=== PATIENT | male | born 1965 ===

== ENCOUNTER 2017-07-15 22:05 | Emergency (ER) | payer SELFPAY ==
[2017-07-15 22:57] VITALS: BMI 24.1
[2017-07-15 22:58] VITALS: BP 133/83; PULSE 72; RESP 16; TEMP 97.7; O2SAT 98
[2017-07-16] MEDS ORDERED: Tdap Vaccine 0.5 ml Vial (10-64 yrs) IM ONE ×2 (00:22→00:27)
--- NOTE | 2017-07-16 00:24 | ED PDOC ---
Upper Extremity Pain/Injury Time Seen by Provider: 07/15/17 23:25 Chief Complaint (Nursing): Abnormal Skin Integrity Chief Complaint (Provider): Abnormal Skin Integrity History Per: Patient History/Exam Limitations: no limitations Onset/Duration Of Symptoms: Other (prior to arrival) Current Symptoms Are (Timing): Still Present Additional Complaint(s): 52 y/o male with no significant pmhx, who presents to ED for evaluation of right hand laceration prior to arrival. Patient states while washing dishes he broke a glass and sustained a laceration to the web site between his 4th and 5th right digits. Denies numbness or decreased ROM. Tetanus not UTD. Past Medical History Reviewed: Historical Data, Nursing Documentation, Vital Signs Vital Signs: Last Vital Signs Temp 97.7 F 07/15/17 22:57 Pulse 72 07/15/17 22:57 Resp 16 07/15/17 22:57 BP 133/83 07/15/17 22:57 Pulse Ox 98 07/15/17 22:57 - Medical History PMH: Depression, HTN, Hypercholesterolemia Denies: Diabetes, Hepatitis, HIV, Chronic Kidney Disease, Seizures, Sexually Transmitted Disease - Surgical History Surgical History: No Surg Hx - Family History Family History: States: Unknown Family Hx - Immunization History Hx Tetanus Toxoid Vaccination: No - Home Medications Home Medications: Ambulatory Orders Medication Instructions Recorded Atorvastatin [Lipitor] 20 mg PO DAILY #30 tab 11/22/15 buPROPion SR [Wellbutrin SR 150 MG] 150 mg PO DAILY #30 tab 11/22/15 hydroCHLOROthiazide [Microzide] 12.5 mg PO DAILY #30 cap 11/22/15 - Allergies Allergies/Adverse Reactions: Allergies Allergy/AdvReac Type Severity Reaction Status Date / Time No Known Allergies Allergy Verified 07/15/17 23:00 Review of Systems ROS Statement: Except As Marked, All Systems Reviewed And Found Negative Skin: Positive for: Lesions (2 cm laceration to web space between 4th and 5th right digit) Neurological: Negative for: Numbness Physical Exam - Reviewed Nursing Documentation Reviewed: Yes Vital Signs Reviewed: Yes - Physical Exam Comments: GENERAL APPEARANCE: Patient is awake, alert, oriented x 3, in no acute distress. SKIN: Warm, dry; (-) cyanosis. RIGHT HAND: (+) 2cm laceration to web site between 4th and 5th right digits, (- ) deformity. (-) distal neurovascular deficits. Capillary refill <2 seconds. NEURO AND PSYCH: Mental status as above. - ECG O2 Sat by Pulse Oximetry: 98 (RA) Pulse Ox Interpretation: Normal Medical Decision Making Medical Decision Making: Plan: Wound irrigated with saline. Laceration to the R hand in the webspace of 4th & 5th digit, measuring ~2 cm, closed with Dermabond by PA, and clean dressing applied. Patient tolerated procedure well. Advised to follow up with primary care physician in 1-2 days without fail. Return to the emergency room at any time for any new or worsening symptoms. Patient states he fully agrees with and understands discharge instructions. States that he agrees with the plan and disposition. Verbalized and repeated discharge instructions and plan. I have given the patient opportunity to ask any additional questions. Scribe Attestation: Documented by Jerod Mittal, acting as a scribe for Roxy Aguilar PA-C. Provider Scribe Attestation: All medical record entries made by the Scribe were at my direction and personally dictated by me. I have reviewed the chart and agree that the record accurately reflects my personal performance of the history, physical exam, medical decision making, and the department course for this patient. I have also personally directed, reviewed, and agree with the discharge instructions and disposition. Disposition - Clinical Impression Clinical Impression: Laceration of right hand - Patient ED Disposition Is Patient to be Admitted: No Counseled Patient/Family Regarding: Diagnosis, Need For Followup - Disposition Disposition: Routine/Home Disposition Time: 00:15 Condition: STABLE Additional Instructions: Thank you for letting us take care of you today. You were treated for right hand laceration. The emergency medical care you received today was directed at your acute symptoms. It may take several days for your symptoms to resolve. Return to the Emergency Department if your symptoms worsen, do not improve, or if you have any other problems. Please contact your doctor in 2 days for re-evaluation and follow up. Bring any paperwork you were given at discharge with you along with any medications you are taking to your follow up visit. Our treatment cannot replace ongoing medical care by a primary care provider (PCP) outside of the emergency department. Thank you for allowing the [facility] team to be part of your care today. 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
== END 2017-07-16 01:24 | disposition home or self-care (01) ==
LOC: H.ER 22:05
DX: Z23 Encounter for immunization (principal); I10 Essential (primary) hypertension; E11.8 Type 2 diabetes mellitus with unspecified complications; Z86.59 Personal history of other mental and behavioral disorders; E78.00 Pure hypercholesterolemia, unspecified; W25.XXXA Contact with sharp glass, initial encounter; Y93.G1 Activity, food preparation and clean up

== ENCOUNTER 2018-07-03 22:46 | Emergency (ER) | payer SELFPAY ==
[2018-07-03 22:46] VITALS: BMI 24.1
[2018-07-03 23:12] VITALS: RESP 18; O2SAT 99
[2018-07-03] MEDS ORDERED: Sodium Chloride 0.9% 1,000 ML IV STA (23:25)
--- NOTE | 2018-07-03 23:31 | ED PDOC ---
HPI: Abdomen Chief Complaint (Provider): abdominal pain History Per: Patient History/Exam Limitations: no limitations Onset/Duration Of Symptoms: Days (3), Gradual, Persistent Current Symptoms Are (Timing): Still Present Severity: Moderate Location Of Pain/Discomfort: LLQ (radiates to groin if pressed really hard) Associated Symptoms: denies: Fever, Chills, Nausea, Vomiting, Diarrhea, Loss Of Appetite, Back Pain, Chest Pain, Constipation, Urinary Symptoms Exacerbating Factors: Movement, Other (palpation) Alleviating Factors: None Additional Complaint(s): PMD [facility] <Elena Stubbs - Last Filed: 07/03/18 23:28> <Russell Barron - Last Filed: 07/04/18 01:56> Time Seen by Provider: 07/03/18 23:16 Chief Complaint (Nursing): Abdominal Pain Past Medical History Reviewed: Historical Data, Nursing Documentation, Vital Signs Vital Signs: Last Vital Signs Temp Pulse 58 L 07/03/18 23:10 Resp 18 07/03/18 23:10 BP 150/96 H 07/03/18 23:10 Pulse Ox 99 07/03/18 23:10 Primary Care Provider: FAMILY PROVIDER,NO - Medical History PMH: Depression, HTN, Hypercholesterolemia Denies: Diabetes, Hepatitis, HIV, Chronic Kidney Disease, Seizures, Sexually Transmitted Disease - Surgical History Surgical History: No Surg Hx - Family History Family History: States: Hypertension, Other Other Family History: High cholesterol - Social History Current smoker - smoking cessation education provided: No (quit 1 year ago) Alcohol: Occasional Drugs: Denies - Immunization History Hx Tetanus Toxoid Vaccination: No <Elena Stubbs - Last Filed: 07/03/18 23:28> Vital Signs: Last Vital Signs Temp 98.6 F 07/04/18 00:01 Pulse 58 L 07/03/18 23:10 Resp 18 07/03/18 23:10 BP 150/96 H 07/03/18 23:10 Pulse Ox 99 07/03/18 23:38 <Russell Barron - Last Filed: 07/04/18 01:56> - Home Medications Home Medications: Ambulatory Orders Medication Instructions Recorded Atorvastatin [Lipitor] 20 mg PO DAILY #30 tab 11/22/15 buPROPion SR [Wellbutrin SR 150 MG] 150 mg PO DAILY #30 tab 11/22/15 hydroCHLOROthiazide [Microzide] 12.5 mg PO DAILY #30 cap 11/22/15 - Allergies Allergies/Adverse Reactions: Allergies Allergy/AdvReac Type Severity Reaction Status Date / Time No Known Allergies Allergy Verified 07/15/17 23:00 Review of Systems ROS Statement: Except As Marked, All Systems Reviewed And Found Negative (and as per HPI) Gastrointestinal: Positive for: Abdominal Pain. Negative for: Nausea, Vomiting, Diarrhea <Elena Stubbs - Last Filed: 07/03/18 23:28> Physical Exam - Reviewed Nursing Documentation Reviewed: Yes Vital Signs Reviewed: Yes - Physical Exam Appears: Positive for: Non-toxic, In Acute Distress Head Exam: Positive for: ATRAUMATIC, NORMOCEPHALIC Skin: Positive for: Warm, Dry Eye Exam: Positive for: EOMI, PERRL ENT: Negative for: Pharyngeal Erythema, Tonsillar Exudate Neck: Positive for: Painless ROM, Supple Cardiovascular/Chest: Positive for: Regular Rate, Rhythm. Negative for: Murmur Respiratory: Positive for: Normal Breath Sounds. Negative for: Respiratory Distress Gastrointestinal/Abdominal: Positive for: Soft, Tenderness (exquisite LLQ tende rness, neg mcburney's point tenderness, neg francois's sign). Negative for: Mass, Distended, Guarding Back: Positive for: Normal Inspection. Negative for: Decreased ROM Extremity: Positive for: Normal ROM. Negative for: Deformity Lymphatic: Negative for: Adenopathy, Inguinal Node Tenderness Neurological/Psych: Positive for: Awake, Alert. Negative for: Motor/Sensory Deficits <Elena Stubbs - Last Filed: 07/03/18 23:28> - ECG O2 Sat by Pulse Oximetry: 99 <Elena Stubbs - Last Filed: 07/03/18 23:28> - Laboratory Results Result Diagrams: 07/03/18 23:50 07/03/18 23:50 Lab Results: Total Bilirubin 0.4 mg/dl (0.2-1.3) 07/03/18 23:50 AST 36 U/L (17-59) 07/03/18 23:50 ALT 54 U/L (21-72) 07/03/18 23:50 Alkaline Phosphatase 90 U/L (38-126) 07/03/18 23:50 Total Protein 7.9 G/DL (6.3-8.2) 07/03/18 23:50 Albumin 4.5 g/dL (3.5-5.0) 07/03/18 23:50 Globulin 3.5 gm/dL (2.2-3.9) 07/03/18 23:50 Albumin/Globulin Ratio 1.3 (1.0-2.1) 07/03/18 23:50 Urine Color Yellow (YELLOW) 07/03/18 23:50 Urine Clarity Clear (Clear) 07/03/18 23:50 Urine pH 6.0 (5.0-8.0) 07/03/18 23:50 Ur Specific [place] 1.019 (1.003-1.030) 07/03/18 23:50 Urine Protein Negative mg/dL (NEGATIVE) 07/03/18 23:50 Urine Glucose (UA) Neg mg/dL (NEGATIVE) 07/03/18 23:50 Urine Ketones Negative mg/dL (NEGATIVE) 07/03/18 23:50 Urine Blood Negative (NEGATIVE) 07/03/18 23:50 Urine Nitrate Negative (NEGATIVE) 07/03/18 23:50 Urine Bilirubin Negative (NEGATIVE) 07/03/18 23:50 Urine Urobilinogen 0.2-1.0 mg/dL (0.2-1.0) 07/03/18 23:50 Ur Leukocyte Esterase Neg Shannon/uL (Negative) 07/03/18 23:50 Urine RBC (Auto) 1 /hpf (0-3) 07/03/18 23:50 Urine Microscopic WBC < 1 /hpf (0-5) 07/03/18 23:50 <Russell Barron - Last Filed: 07/04/18 01:56> Disposition - Disposition Disposition: Transfer of Care Disposition Time: 00:00 Patient Signed Over To: Russell Barron Handoff Comments: Pending ER workup, reassessment and final ER disposition. <Elena Stubbs - Last Filed: 07/03/18 23:28> - Patient ED Disposition Is Patient to be Admitted: No Doctor Will See Patient In The: Office Counseled Patient/Family Regarding: Studies Performed, Diagnosis, Need For Followup <Russell Barron - Last Filed: 07/04/18 01:56> - Clinical Impression Clinical Impression: Abdominal pain, Colitis, Renal cyst - Disposition Referrals: [facility] [Outside] Condition: GOOD Additional Instructions: SILVERIO RIVERA, thank you for letting us take care of you today. Your provider was Russell Barron MD and you were treated for ABD PAIN. The emergency medical care you received today was directed at your acute symptoms. If you were prescribed any medication, please fill it and take as directed. It may take several days for your symptoms to resolve. Return to the Emergency Department if your symptoms worsen, do not improve, or if you have any other problems. Please contact your doctor or call one of the physicians/clinics you have been referred to that are listed on the Patient Visit Information form that is included in your discharge packet. Bring any paperwork you were given at discharge with you along with any medications you are taking to your follow up visit. Our treatment cannot replace ongoing medical care by a primary care provider outside of the emergency department. Thank you for allowing the [facility] team to be part of your care today. If you had an X-Ray or CT scan: A Radiologist will review the ED reading if any change in treatment is needed we will contact you. If you had a blood, urine, or wound culture: It will take several days for the results, if any change in treatment is needed we will contact you. Instructions: Colitis (DC) Forms: [employer] (Spanish)
[2018-07-04 00:20] LABS: BASO % 0.5 % (0.0-2.0); EOS # 0.1 K/uL (0.0-0.7); EOS % 1.7 % (0.0-4.0); HEMOGLOBIN 13.7 g/dL (12.0-18.0); LYMPH # 2.3 K/uL (1.0-4.3); LYMPH % 35.4 % (20.0-40.0); MEAN CELL VOLUME 92.8 fl (80.0-94.0); MEAN CORPUSCULAR HGB CONC 34.5 g/dL (33.0-37.0); MONO # 0.5 K/uL (0.0-0.8); MONO % 6.9 % (0.0-10.0); NEUT # 3.7 K/uL (1.8-7.0); NEUT % 55.5 % (50.0-75.0); NRBC % 0.1 % (0.0-0.0); RBC 4.28 Mil/uL (4.40-5.90); RED CELL DISTRIBUTION WIDTH 13.2 % (11.5-14.5); WHITE BLOOD COUNT 6.6 K/uL (4.8-10.8)
[2018-07-04 00:30] LABS: URINE BILIRUBIN NEGATIVE (NEGATIVE); URINE BLOOD NEGATIVE (NEGATIVE); URINE CLARITY CLEAR (Clear); URINE COLOR YELLOW (YELLOW); URINE GLUCOSE (UA) NEG (NEGATIVE); URINE LEUKOCYTE ESTERASE NEG Leu/uL (Negative); URINE PROTEIN NEGATIVE (NEGATIVE); URINE UROBILINOGEN 0.2-1.0 mg/dL (0.2-1.0)
[2018-07-04 00:31] LABS: ALB/GLOB RATIO 1.3 (1.0-2.1); ALBUMIN 4.5 g/dL (3.5-5.0); ALT/SGPT 54 U/L (21-72); AST/SGOT 36 U/L (17-59); BLOOD UREA NITROGEN 16 mg/dl (9-20); CALCIUM 8.4 mg/dL (8.4-10.2); GFR NON-AFRICAN AMERICAN > 60
[2018-07-04] MEDS ORDERED: Iohexol 300 100 ML IJ ONE (00:51)
[2018-07-04] MEDS ORDERED: Sodium Chloride 0.9% 50 ML IV ONE (00:51)
--- NOTE | 2018-07-04 03:51 | ED PDOC ---
- Laboratory Results Result Diagrams: 07/03/18 23:50 07/03/18 23:50 Lab Results: Total Bilirubin 0.4 mg/dl (0.2-1.3) 07/03/18 23:50 AST 36 U/L (17-59) 07/03/18 23:50 ALT 54 U/L (21-72) 07/03/18 23:50 Alkaline Phosphatase 90 U/L (38-126) 07/03/18 23:50 Total Protein 7.9 G/DL (6.3-8.2) 07/03/18 23:50 Albumin 4.5 g/dL (3.5-5.0) 07/03/18 23:50 Globulin 3.5 gm/dL (2.2-3.9) 07/03/18 23:50 Albumin/Globulin Ratio 1.3 (1.0-2.1) 07/03/18 23:50 Urine Color Yellow (YELLOW) 07/03/18 23:50 Urine Clarity Clear (Clear) 07/03/18 23:50 Urine pH 6.0 (5.0-8.0) 07/03/18 23:50 Ur Specific [place] 1.019 (1.003-1.030) 07/03/18 23:50 Urine Protein Negative mg/dL (NEGATIVE) 07/03/18 23:50 Urine Glucose (UA) Neg mg/dL (NEGATIVE) 07/03/18 23:50 Urine Ketones Negative mg/dL (NEGATIVE) 07/03/18 23:50 Urine Blood Negative (NEGATIVE) 07/03/18 23:50 Urine Nitrate Negative (NEGATIVE) 07/03/18 23:50 Urine Bilirubin Negative (NEGATIVE) 07/03/18 23:50 Urine Urobilinogen 0.2-1.0 mg/dL (0.2-1.0) 07/03/18 23:50 Ur Leukocyte Esterase Neg Shannon/uL (Negative) 07/03/18 23:50 Urine RBC (Auto) 1 /hpf (0-3) 07/03/18 23:50 Urine Microscopic WBC < 1 /hpf (0-5) 07/03/18 23:50 - ECG O2 Sat by Pulse Oximetry: 99 (RA) Pulse Ox Interpretation: Normal Medical Decision Making Medical Decision Making: Time: 0000 Patient endorsed to provider from Elena Stubbs MD. Patient complains of abdominal pain. Pending CT and final disposition. Time:013 FINDINGS: Bilateral basilar subsegmental atelectatic pulmonary changes. 5.1 cm left renal simple cyst. Colonic diverticulosis. Diffuse thickening of the sigmoid colon can be secondary to underdistention, spasm versus mild uncomplicated colitis. Diffuse thickening of the wall of the bladder suggestive of cystitis. Normal unenhanced liver. Normal gallbladder and extrahepatic biliary system. Normal unenhanced spleen. Normal pancreas. Normal bilateral adrenal glands. Normal size of the right kidney. There is no right renal mass. There are no r ight renal calculi. There is no right hydronephrosis. Normal visualized right ureter. Normal size of the left kidney. There is no left renal mass. There are no left renal calculi. There is no left hydronephrosis. Normal visualized left ureter. Normal visualized stomach. Normal small intestine. Normal remaining colon. The appendix is visualized and appears normal. There is no demonstrated peritoneal fluid. Normal abdominal aorta. Normal inferior vena cava. Normal retroperitoneum. Normal urinary bladder. There is no pelvic mass lesion or lymphadenopathy. There is no pelvic fluid. Normal abdominal wall. Normal osseous structures. IMPRESSION: Bilateral basilar subsegmental atelectatic pulmonary changes. 5.1 cm left renal simple cyst. Colonic diverticulosis. Diffuse thickening of the sigmoid colon can be secondary to underdistention, spasm versus mild uncomplicated colitis. Diffuse thickening of the wall of the bladder suggestive of cystitis. Electronically signed on July 04, 2018 1:35:41 AM EDT by: Victorino Mosher M.D., Certified by MARCELINO RAYMUNDO, Neuroradiology Scribe Attestation: Documented by Brooks Hewitt, acting as a scribe for Russell Barron MD. Provider Scribe Attestation: All medical record entries made by the Scribe were at my direction and personally dictated by me. I have reviewed the chart and agree that the record accurately reflects my personal performance of the history, physical exam, medical decision making, and the department course for this patient. I have also personally directed, reviewed, and agree with the discharge instructions and disposition. Disposition - Clinical Impression Clinical Impression: Abdominal pain, Colitis, Renal cyst - POA Present On Arrival: None - Disposition Referrals: [facility] [Outside] Ish Bae MD [Staff Provider] - Disposition: Routine/Home Disposition Time: 02:00 Condition: GOOD Additional Instructions: SILVERIO RIVERA, thank you for letting us take care of you today. Your provider was Russell Barron MD and you were treated for ABD PAIN. The emergency medical care you received today was directed at your acute symptoms. If you were prescribed any medication, please fill it and take as directed. It may take several days for your symptoms to resolve. Return to the Emergency Department if your symptoms worsen, do not improve, or if you have any other problems. Please contact your doctor or call one of the physicians/clinics you have been referred to that are listed on the Patient Visit Information form that is included in your discharge packet. Bring any paperwork you were given at discharge with you along with any medications you are taking to your follow up visit. Our treatment cannot replace ongoing medical care by a primary care provider outside of the emergency department. Thank you for allowing the [facility] team to be part of your care today. If you had an X-Ray or CT scan: A Radiologist will review the ED reading if any change in treatment is needed we will contact you. If you had a blood, urine, or wound culture: It will take several days for the results, if any change in treatment is needed we will contact you. Prescriptions: Ciprofloxacin [Cipro] 500 mg PO BID #14 tab metroNIDAZOLE [Flagyl] 500 mg PO TID #21 tab Instructions: Colitis (DC) Forms: [employer] ([employer])
[2018-07-04 05:32] VITALS: BP 138/75; PULSE 68; TEMP 98.5
--- NOTE | 2018-07-04 11:58 | CT ---
Date of service: 07/04/2018 PROCEDURE: CT abdomen and pelvis . HISTORY: LLQ pain COMPARISON: None. TECHNIQUE: Contiguous axial images of the abdomen and pelvis performed following intravenous injection of a reformats generated. Radiation dose: Total exam DLP = 286.42 mGy-cm. This CT exam was performed using one or more of the following dose reduction techniques: Automated exposure control, adjustment of the mA and/or kV according to patient size, and/or use of iterative reconstruction technique. FINDINGS: LOWER THORAX: Mild passive/dependent type atelectasis both lower lung trimble. Lung bases are otherwise clear. No evidence of effusion basilar pneumothorax Heart size within range of normal. No evidence of significant pericardial effusion. Small hiatal hernia. LIVER: Liver is mildly enlarged measuring nearly 20 cm in CC dimension. Mild to moderate diffuse fatty hepatic infiltration.. There is a tiny approximately 4.8 mm low-attenuation focus seen along the left lateral margin left lobe liver that may represent a small invagination of mesenteric fat however small hepatic cyst not completely excluded. GALLBLADDER AND BILE DUCTS: Gallbladder is contracted with no evidence of intraluminal gallbladder calculi. PANCREAS: Unremarkable. No mass. No ductal dilatation. SPLEEN: Spleen exhibits relatively normal size and attenuation pattern without mass collection or calcification. ADRENALS: No adrenal lesions. KIDNEYS AND URETERS: Kidneys demonstrate relatively symmetric nephrograms. No evidence of nephrolithiasis or hydronephrosis. Suspect small hyperdense cyst along the posterolateral cortex mid to lower pole left kidney. BLADDER: The urinary bladder is incompletely distended which in part accounts for thick-walled appearance. Muscular hypertrophy presumably contributes. Correlation with urinalysis to exclude cystitis versus other intrinsic/invasive wall lesion.. REPRODUCTIVE: Prostate gland measures approximately 4.4 cm in transverse dimension.. APPENDIX: Normal-appearing appendix with no evidence to suggest acute appendicitis. BOWEL: The bowel is limited due to the lack of oral contrast material. The stomach is incompletely distended containing air and liquid with thick-walled appearance. Visualized loops of small bowel exhibit normal contour and caliber. No evidence of acute mechanical small bowel obstruction however several loops of small bowel exhibit slight thick-walled appearance. There is a large amount of stool seen in the ascending and transverse colon consistent with mild fecal retention/constipation. Numerous diverticula are seen along the sigmoid and descending colon. There is a localized area of wall thickening and in the adjacent mesenteric infiltration all at the junction of the distal descending/sigmoid colon consistent with acute diverticulitis. There is also wall thickening of the remaining sigmoid colon likely due to muscular hypertrophy due to chronic diverticular disease however incomplete distension and peristalsis may contribute. PERITONEUM: Unremarkable. No fluid collection. No free air. LYMPH NODES: Unremarkable. No enlarged lymph nodes. VASCULATURE: Unremarkable. No aortic aneurysm. No aortic atherosclerotic calcification or mural plaque present. BONES: Osseous structures appear intact.. The there is a tiny sclerotic focus left acetabulum. OTHER FINDINGS: None. IMPRESSION: Diverticulosis with findings consistent with acute diverticulitis involving short segment of the distal descending/sigmoid colon junction. There is also wall thickening of the sigmoid colon a combination of possibly secondary to a combination of muscular hypertrophy due to chronic diverticular disease; incomplete distension peristalsis may contribute. Mild hepatomegaly with mild to moderate fatty infiltration. Small low-attenuation focus left lobe liver possibly representing invaginated mesenteric fat versus small cyst. Follow-up at interval recommended to assess. Stability. Suspect hyperdense cyst left kidney for which follow-up renal ultrasound could confirm Note that this report was placed in [place] review folder for follow up.
== END 2018-07-04 04:00 | disposition home or self-care (01) ==
LOC: H.ER 22:46
DX: R10.9 Unspecified abdominal pain (principal); K52.9 Noninfective gastroenteritis and colitis, unspecified; N28.1 Cyst of kidney, acquired; E78.00 Pure hypercholesterolemia, unspecified; Z86.59 Personal history of other mental and behavioral disorders; I10 Essential (primary) hypertension
CPT/HCPCS: 74177; 80053; 81003; 83605; 85025; 87040; 87086; 96374; 99283; J1885; J7030; Q9967